=== PATIENT | female | born 1970 | race Caucasian/White ===

== ENCOUNTER → 2017-12-24 08:37 | Day surgery (SDC) | payer OTHER ==
[~2017-12-24 08:37] MED LIST: Buffered Lidocaine 0.9% SYRIN* 5 ML/SYR SYRINGE INTRADERM ONE; Buffered Lidocaine 0.9% SYRIN* 5 ML/SYR SYRINGE ONE; Bupivacaine 0.5% SDV PF* 30ML VIAL ONE; Dexamethasone IV* 4 MG/ML 1 ML (4 MG) ONE; EPINEPHRINE 1 MG/ML 1 ML VIAL ONE; Ketorolac INJ* 30 MG/ML 1 ML VIAL ONE; Lidocaine 2% PF * 5 ML VIAL ONE; Naloxone* 0.4 MG/ML 1 ML VIAL IV PRN; Propofol* 10 MG/ML 20 ML BTL IV PUSH ONE; Sodium Citrate/Citric Acid* 15 ML UDC ONE; Sodium Citrate/Citric Acid* 15 ML UDC PO ONE; ceFAZolin 2 GM in NS PREMIX(*) 2 GM/100 ML BAG IVPB ONE; fentaNYL* 50 MCG/ML 2 ML VIAL (100 MCG VIAL) ONE; methylPREDNISolone ACETATE 80* 80 MG/ML 1 ML VIAL ONE; oxyCODONE/Acetamin 5/325 MG* TAB ONE
[2017-12-24] MEDS: fentaNYL* 50 MCG/ML 2 ML VIAL (100 MCG VIAL) IV PRN ×2 (11:23→11:34)
[2017-12-24 12:24] VITALS: BP 153/91
--- NOTE | 2017-12-25 03:13 | OP ---
DATE OF OPERATION: 12/24/17 - [facility] DATE OF : 68 ATTENDING SURGEON: Cheli Milner MD ANESTHESIOLOGIST: Dr. Malone. ANESTHESIA: General. PRE-OP DIAGNOSIS: Right knee medial meniscus tear. 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 OPERATIVE PROCEDURE: Right knee arthroscopy with partial medial meniscectomy and medical chondroplasty. BRIEF HISTORY/INDICATION: Ms. Ortega is a 46-year-old female with 6 months of mechanical symptoms along medial joint line with recurrent swelling and pain. She had MRI confirming the medial meniscal tear. Radiographs showed some mild arthritic changes. Due to failure of time and conservative treatment, the patient elected to undergo right knee arthroscopy with partial meniscectomy, possible chondroplasty, possible synovectomy. Informed consent was obtained from the patient. She understood the risks of surgery include, but were not limited to, bleeding, infection, damage to nearby structures, continued pain, need for further surgery, re-tear of the meniscus, stroke, heart attack, blood clot, and . She wished to proceed. INTRA-OPERATIVE FINDINGS: Intra-operatively, the patient was noted to have severe arthritis of the medial compartment with grade 3 and 4 Outerbridge cartilage changes along the medial femoral condyle. A large portion of the medial femoral condyle had exposed subchondral bone and a cartilage flap. Medial meniscus had complex tear with both radial and longitudinal components involving the body and posterior horn. ESTIMATED BLOOD LOSS: Less than 25 cc. COMPLICATIONS: None. SPECIMEN: None. DESCRIPTION OF PROCEDURE: Ms. Ortega was identified in the pre-anesthesia unit. Her right lower extremity was marked as a corrective operative side. Informed consent was signed and placed in the chart. The patient was taken to the operating room and placed under general anesthesia. Right lower extremity was prepped and draped in the usual sterile fashion. Preop time-out was made to correctly identify the patient, side, and site. Appropriate perioperative antibiotics were given within 1 hour of incision. A standard anterolateral portal incision was made with a 10-blade and carried down through the capsule. Trocar was introduced. Light and water sources were turned on. A tour of the knee joints was performed. Suprapatellar pouch had no obvious abnormalities. Patellofemoral component had some grade 2 and 3 Outerbridge cartilage changes. Medial gutter had no plica or loose body. Medial compartment showed grade 3 and 4 Outerbridge cartilage changes with exposed subchondral bone along the medial femoral condyle and cartilage flapping. This was severe arthritic changes. Medial meniscus showed a complex tear involving the majority of the body and posterior portion of the medial meniscus. This was a complex tear with anterior displacement. ACL and PCL appeared to be intact. The knee was placed in a [id number] position. Lateral cartilage had no significant degenerative changes. No obvious lateral meniscal tear. Lateral gutter showed no loose body or plica. Under direct visualization, a medial portal incision was made with a 15-blade. A probe was introduced and a second tour of the knee joint was performed. There were no additional findings. Shaver and straight biter were used to perform partial medial meniscectomy in the white-red zone of the body and posterior horn of the medial meniscus. Further probing of the meniscus showed no additional flaps or tears. A smooth border was obtained. This border was further smoothed using the radiofrequency ablation wand. Next, the knee had small amount of chondroplasty along the cartilage flap of the medial femoral condyle. The knee was copiously irrigated with sterile saline. All instruments were removed. Incisions were closed using 3-0 nylon suture. Intra-articular injection of 80 mg Depo-Medrol and 6 cc of 0.25% Marcaine was placed in the knee joint. The patient's incisions were covered with Xeroform, 4x4s, Webril. Matheus wrap and cold pack were placed over this. The patient's anesthesia was reversed without difficulty. She was taken to the PACU in stable condition. Intended weight-bearing will be weightbearing as tolerated. Intended DVT prophylaxis will be aspirin. [id number]/[facility] #: [id number] [facility]
== END | disposition home or self-care (01) ==
LOC: OR 08:37
PROVIDERS: ATTEND Orthopaedic Surgery Adult Reconstructive Orthopaedic Surgery
DX: S83.241A Other tear of medial meniscus, current injury, right knee, initial encounter (principal); M17.11 Unilateral primary osteoarthritis, right knee; M25.561 Pain in right knee; M25.461 Effusion, right knee; E66.01 Morbid (severe) obesity due to excess calories; X50.0XXA Overexertion from strenuous movement or load, initial encounter; Y92.9 Unspecified place or not applicable
CPT/HCPCS: 81025; A9270-GY; J0690; J1040; J1100; J1885; J2704; J3010